=== PATIENT | female | born 1990 | race Caucasian/White ===

== ENCOUNTER 2016-10-24 17:29 | Emergency (ER) | payer OTHER ==
[~2016-10-24] VITALS: Ht 177.8 cm; Wt 59.0 kg
[2016-10-24] MEDS ORDERED: CEFTRIAXONE 500 MG VIAL IM ONE (19:00)
--- NOTE | 2016-10-24 19:18 | NUR ---
Patient discharged to home in stable conditon. Written and verbal after care instructions given. Patient verbalizes understanding of instructions. Stressed follow up with pmd/obgyn or return to ER for worsening s/s.
[2016-10-24] MEDS ORDERED: CEFTRIAXONE 500 MG VIAL ONE (19:24)
[2016-10-24] MEDS ORDERED: LIDOCAINE HCL 1% 20 ML VIAL ONE (19:24)
== END 2016-10-24 19:20 | disposition home or self-care (01) ==
LOC: ER 17:30
DX: N75.0 Cyst of Bartholin's gland (principal); F17.200 Nicotine dependence, unspecified, uncomplicated; Z88.1 Allergy status to other antibiotic agents; K21.9 Gastro-esophageal reflux disease without esophagitis
CPT/HCPCS: A4663; J0696; J3490